=== PATIENT | male | born 1950 | race Caucasian/White ===

== ENCOUNTER 2025-02-15 09:53 | Day surgery (SDC) | payer MEDICARE, OTHER ==
[2025-02-14 14:06] VITALS: BMI 31.0
[2025-02-15] MEDS ORDERED: Lidocaine 1% PF 5 ML VIAL ONE (10:36)
[2025-02-15] MEDS ORDERED: PROPOFOL 20 ML ONE (10:36)
[2025-02-15] MEDS ORDERED: PROPOFOL 0 ML ONE (10:36)
[2025-02-15 11:21] LABS: #Basophils 0.08 10x3/uL (0.0-0.2); #Eosinophils 0.07 10x3/uL (0.0-0.7); #Monocytes 0.52 10x3/uL (0.11-0.59); #Neutrophils 3.78 10x3/uL (1.40-6.50); %Basophils 1.4 % (0.0-1.0); %Eosinophils 1.2 % (0.0-10.0); %Lymphocytes 23.9 % (21.0-51.0); %Monocytes 8.9 % (0.0-10.0); %Neutrophils 64.3 % (42.0-75.0); Hematocrit 47.8 % (42.0-52.0); Hemoglobin 15.9 g/dL (14.0-18.0); Mean Corpuscular Hemoglobin 29.8 pg (27.0-31.0); Mean Corpuscular Volume 89.5 fL (78.0-98.0); Platelet Count 171 10x3/uL (130-400); Red Blood Cell (RBC) Count 5.34 mill/uL (4.70-6.10); White Blood Cell (WBC) Count 5.87 10x3/uL (4.8-10.8)
[2025-02-15 11:34] LABS: Anion Gap 14 mmol/L (10-20); BUN (Urea Nitrogen) 21 mg/dL (8.4-25.7); Calc. Creatinine Clearance 77 mL/min (70-130); Calcium 9.4 mg/dL (7.8-10.44); Carbon Dioxide 25 mmol/L (23-31); Chloride 109 mmol/L (98-107); Glucose 119 mg/dL (83-110); Potassium 4.0 mmol/L (3.5-5.1); Sodium 144 mmol/L (136-145)
[2025-02-15] MEDS ORDERED: PROPOFOL 200 MG/20 ML VIAL ONE (11:45)
== END 2025-02-15 13:30 | disposition home or self-care (01) ==
LOC: SDC 09:53
PROVIDERS: ATTEND Internal Medicine Cardiovascular Disease
PROC: 5A2204Z Restoration of Cardiac Rhythm, Single (ICD-10-PCS; principal; 2025-02-15)
DX: I48.91 Unspecified atrial fibrillation (principal); E78.5 Hyperlipidemia, unspecified; I73.9 Peripheral vascular disease, unspecified; E03.9 Hypothyroidism, unspecified; Z79.01 Long term (current) use of anticoagulants; Z79.890 Hormone replacement therapy; Z79.899 Other long term (current) drug therapy; Z87.891 Personal history of nicotine dependence
CPT/HCPCS: 80048; 85025; 92960; 93005; 93312; J2704; 93010